=== PATIENT | male | born 1995 | race African-American/Black ===

== ENCOUNTER 2019-08-18 20:16 | Emergency (ER) | payer OTHER ==
[~2019-08-18] VITALS: Ht 165.1 cm; Wt 65.8 kg
[2019-08-18 20:24] VITALS: BP 135/81
--- NOTE | 2019-08-18 21:17 | NUR ---
NO ANSWER IN LOBBY AT THIS TIME.
--- NOTE | 2019-08-18 21:20 | NUR ---
THIS IS A 23Y M THAT COMES IN TONIGHT FOR BILAT KNEE PAIN AFTER STARTING A NEW JOB
--- NOTE | 2019-08-18 21:31 | NUR ---
Patient/Caregiver given discharge instructions and they have confirmed that they understand the instructions. Patient ambulatory with steady gait.
== END 2019-08-18 21:32 | disposition home or self-care (01) ==
LOC: ED 21:27
DX: M17.0 Bilateral primary osteoarthritis of knee (principal)
CPT/HCPCS: 99283

== ENCOUNTER 2019-08-26 09:00 | Emergency (ER) | payer OTHER ==
[~2019-08-26] VITALS: Ht 165.1 cm; Wt 65.5 kg
[2019-08-26 09:03] VITALS: BP 128/63
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
[2019-08-26] MEDS ORDERED: ALBU0.63 NEB (09:16)
[2019-08-26] MEDS ORDERED: ARIP10TA33 PO (09:16)
[2019-08-26] MEDS ORDERED: ACETAMINOPHEN 500 MG TABLET PO ONE (10:00)
== END 2019-08-26 10:13 | disposition home or self-care (01) ==
LOC: ED 09:32
DX: G89.29 Other chronic pain (principal); M25.561 Pain in right knee; M25.562 Pain in left knee
CPT/HCPCS: 99283

== ENCOUNTER 2019-08-31 21:18 | Emergency (ER) | payer OTHER ==
[~2019-08-31] VITALS: Ht 165.1 cm; Wt 63.9 kg
[~2019-08-31 21:18] MED LIST: ALBU0.63 NEB; ARIP10TA33 PO
[2019-08-31 21:23] VITALS: BP 134/74
--- NOTE | 2019-08-31 21:54 | NUR ---
PATIENT TO THE ED WITH C/O BILATERAL KNEE PAIN X MONTHS. TRYING TO GET INTO AN ORTHO WITHIN [employer]. AMBULATING. NO FURTHER CONCERNS.
== END 2019-08-31 21:57 ==
LOC: ED 21:49
DX: G89.29 Other chronic pain (principal); M25.561 Pain in right knee; M25.562 Pain in left knee; F17.210 Nicotine dependence, cigarettes, uncomplicated; Z72.9 Problem related to lifestyle, unspecified
CPT/HCPCS: 99282; 99406

== ENCOUNTER 2019-09-15 09:43 | Emergency (ER) | payer OTHER, MEDICAID ==
[~2019-09-15] VITALS: Ht 165.1 cm; Wt 63.5 kg
--- NOTE | 2019-09-15 10:15 | NUR ---
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
[2019-09-15 11:00] LABS: MICROSCOPIC NOT IND
[2019-09-15 11:14] LABS: AMPHETAMINE SCREEN, URINE Negative (Negative); BARBITURATE SCREEN, URINE Negative (Negative); BENZODIAZEPINE SCREEN, URINE Negative (Negative); CANNABINOID SCREEN, URINE Positive (Negative); COCAINE SCREEN, URINE Negative (Negative); OPIATE SCREEN, URINE Negative (Negative)
[2019-09-15 11:15] LABS: METHADONE SCREEN, URINE Negative (Negative)
[2019-09-15 11:22] LABS: ALBUMIN 4.1 g/dL (3.4-5.0); ANION GAP 3 mmol/L (5-15); CALCIUM 9.2 mg/dL (8.5-10.1); CHLORIDE 109 mmol/L (98-107); CREATININE 1.05 mg/dL (0.7-1.3)
[2019-09-15 11:23] LABS: SALICYLATE LEVEL < 1.7 mg/dL (2.8-20.0)
[2019-09-15 11:24] LABS: BASOPHILS # (AUTO) 0.02 x10^3/uL (0-0.1); BASOPHILS % (AUTO) 0 % (0-1); EOSINOPHILS # (AUTO) 0.24 x10^3/uL (0-0.4); EOSINOPHILS % (AUTO) 4 % (1-7); LYMPHOCYTES # (AUTO) 1.28 x10^3/uL (1-3.4); LYMPHOCYTES % (AUTO) 22 % (22-44); MD NO; MEAN CORPUSCULAR HEMOGLOBIN 31.5 pg (27.5-34.5); MEAN CORPUSCULAR HGB CONC 33.6 g/dL (33.2-36.2); MEAN PLATELET VOLUME 8.6 fL (7.4-10.4); MONOCYTES # (AUTO) 0.41 x10^3/uL (0.2-0.8); MONOCYTES % (AUTO) 7 % (2-9); NEUTROPHILS # (AUTO) 3.96 x10^3/uL (1.8-6.8); NEUTROPHILS % (AUTO) 67 % (42-75); PLATELET COUNT 237 x10^3/uL (130-400); RED BLOOD COUNT 5.35 x10^6/uL (4.38-5.82); RED CELL DISTRIBUTION WIDTH 12.6 % (9.4-14.8)
--- NOTE | 2019-09-15 11:24 | NUR ---
SITTER IN PLACE, SI PRECAUTIONS OBSERVED. PT DENIES NEEDS AT THIS TIME, PT IS CALM RESTING ON GURNEY
--- NOTE | 2019-09-15 12:27 | NUR ---
SYMONE ESCOBEDO IN TO SPEAK WITH PT. JACINTO, PTS GIRLFRIEND IS IN THE LOBBY. PT WOULD LIKE TO VISIT WITH JACINTO ONCE FINISHED WITH FANNY.
[2019-09-15] MEDS ORDERED: ARIPIPRAZOLE 400 MG INJ NC IM ONE (13:00)
[2019-09-15] MEDS ORDERED: ARIPIPRAZOLE 10 MG TABLET PO ONE (13:00)
[2019-09-15] MEDS ORDERED: DULOXETINE 20 MG CAPSULE.DR PO ONE (13:00)
[2019-09-15] MEDS ORDERED: ARIPIPRAZOLE 10 MG TABLET ONE (14:14)
--- NOTE | 2019-09-15 14:30 | NUR ---
BREAK RN: CONFIRMED WITH SYMONE HORTA THAT PT WAS TO RECEIVE PO AND IM OF [facility]. PT MEDICATED ORDERED AND PROVIDED WITH CLOTHING. SIGNIFICANT OTHER AT BEDSIDE. PT AO X 4. CALM AND COOPERATIVE AT THIS TIME. PT AWARE HE IS WAITING FOR DC PAPERWORK.
[2019-09-15 14:47] VITALS: BP 138/76
== END 2019-09-15 14:49 | disposition home or self-care (01) ==
LOC: ED 11:39
DX: F25.1 Schizoaffective disorder, depressive type (principal); F33.9 Major depressive disorder, recurrent, unspecified; J45.909 Unspecified asthma, uncomplicated
CPT/HCPCS: 36415; 80048; 80307; 81003; 82040; 85025; 96372; 99284

== ENCOUNTER 2019-09-29 01:50 | Emergency (ER) | payer MEDICAID, OTHER ==
[~2019-09-29] VITALS: Ht 165.1 cm; Wt 62.5 kg
[2019-09-29 01:54] VITALS: BP 123/75
--- NOTE | 2019-09-29 01:57 | NUR ---
ekg done in triage.
[2019-09-29] MEDS ORDERED: ALBUTEROL SULFATE 2.5 MG/3 ML ONE (02:13)
[2019-09-29] MEDS ORDERED: ALBUTEROL SULFATE 2.5 MG/3 ML NPPB ONE (02:30)
== END 2019-09-29 02:55 | disposition home or self-care (01) ==
LOC: ED 02:22
DX: J45.31 Mild persistent asthma with (acute) exacerbation (principal); R94.31 Abnormal electrocardiogram [ECG] [EKG]; R05 Cough; R06.00 Dyspnea, unspecified
CPT/HCPCS: 93005; 94640; 99283; J7512; J7613

== ENCOUNTER 2019-10-25 19:29 | Emergency (ER) | payer MEDICAID ==
[~2019-10-25] VITALS: Ht 165.1 cm; Wt 63.5 kg
[2019-10-25 19:33] VITALS: BP 133/73
[2019-10-25] MEDS ORDERED: KETOROLAC 30 MG/1 ML ONE (19:51)
[2019-10-25] MEDS ORDERED: DIAZEPAM 5 MG TABLET ONE (19:51)
[2019-10-25] MEDS ORDERED: ACETAMINOPHEN 325 MG TABLET ONE (19:55)
[2019-10-25] MEDS ORDERED: DIAZEPAM 5 MG TABLET PO ONE (20:00)
[2019-10-25] MEDS ORDERED: ACETAMINOPHEN 325 MG TABLET PO ONE (21:00)
[2019-10-25] MEDS ORDERED: KETOROLAC 30 MG/1 ML IM ONE (21:30)
== END 2019-10-25 21:38 | disposition home or self-care (01) ==
LOC: ED 19:50
DX: M54.5 Low back pain (principal); M25.562 Pain in left knee; M25.561 Pain in right knee; J45.909 Unspecified asthma, uncomplicated; F17.200 Nicotine dependence, unspecified, uncomplicated
CPT/HCPCS: 72110; 99284

== ENCOUNTER 2019-11-02 11:12 | Emergency (ER) | payer MEDICAID ==
[~2019-11-02] VITALS: Ht 165.1 cm; Wt 62.3 kg
--- NOTE | 2019-11-02 12:11 | NUR ---
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 CALL TO RADIOLOGY, TO GO TO ROOM AFTER TESTING.
--- NOTE | 2019-11-02 12:23 | NUR ---
C/O BILAT KNEE PAIN X 9 YRS. STATES KNEES JUST GO OUT. ACL & MENISCUS SURGERY TO RT KNEE 07/2018. WAS SCHEDULED FOR PAIN MANAGEMENT - APPT CANCELLED BY OFFICE, RESCHEDULING PENDING.
[2019-11-02] MEDS ORDERED: ABILIFY IM (12:28)
[2019-11-02 12:55] LABS: BASOPHILS # (AUTO) 0.01 x10^3/uL (0-0.1); BASOPHILS % (AUTO) 0 % (0-1); EOSINOPHILS # (AUTO) 0.31 x10^3/uL (0-0.4); EOSINOPHILS % (AUTO) 6 % (1-7); LYMPHOCYTES # (AUTO) 1.31 x10^3/uL (1-3.4); LYMPHOCYTES % (AUTO) 25 % (22-44); MD NO; MEAN CORPUSCULAR HEMOGLOBIN 31.4 pg (27.5-34.5); MEAN CORPUSCULAR HGB CONC 32.9 g/dL (33.2-36.2); MEAN CORPUSCULAR VOLUME 95.4 fL (81-97); MEAN PLATELET VOLUME 7.9 fL (7.4-10.4); MONOCYTES # (AUTO) 0.31 x10^3/uL (0.2-0.8); MONOCYTES % (AUTO) 6 % (2-9); NEUTROPHILS # (AUTO) 3.32 x10^3/uL (1.8-6.8); NEUTROPHILS % (AUTO) 63 % (42-75); PLATELET COUNT 219 x10^3/uL (130-400); RED BLOOD COUNT 5.38 x10^6/uL (4.38-5.82); RED CELL DISTRIBUTION WIDTH 12.9 % (9.4-14.8)
[2019-11-02 12:57] LABS: HCT (SEDRATE) 51.7 % (39.2-51.8)
--- NOTE | 2019-11-02 13:51 | NUR ---
TRAMODOL GIVEN PER EMAR. PT REQUESTING ALBUTEROL INHALER. [facility] FAXED RENEWAL TO [facility], BUT CLINIC HASN'T RESPONDED YET. WILL NOTIFY ERP. KNEE IMMOBILIZER ON RT KNEE. CRUTCHES IN ROOM.
[2019-11-02 13:53] VITALS: BP 102/56
--- NOTE | 2019-11-02 14:45 | NUR ---
NO ADDITIONAL PRESCRIPTIONS WRITTEN. PT ADVISED TO FOLLOW UP W/ [facility].
== END 2019-11-02 14:48 | disposition home or self-care (01) ==
LOC: ED 12:21
DX: G89.29 Other chronic pain (principal); M25.561 Pain in right knee; M25.562 Pain in left knee
CPT/HCPCS: 29505; 36415; 84550; 85025; 85651; 99285

== ENCOUNTER 2019-11-07 12:20 | Emergency (ER) | payer MEDICAID, OTHER ==
[~2019-11-07] VITALS: Ht 165.1 cm; Wt 63.3 kg
[~2019-11-07 12:20] MED LIST changes: +ABILIFY IM
[2019-11-07 12:22] VITALS: BP 139/93
[2019-11-07] MEDS ORDERED: DEXAMETHASONE 4 MG TABLET ONE (12:33)
[2019-11-07] MEDS ORDERED: DEXAMETHASONE 4 MG TABLET PO ONE (13:00)
== END 2019-11-07 13:01 | disposition home or self-care (01) ==
LOC: ED 12:59
DX: J45.901 Unspecified asthma with (acute) exacerbation (principal); Z76.0 Encounter for issue of repeat prescription
CPT/HCPCS: 93005; 99283

== ENCOUNTER 2019-11-13 09:43 | Emergency (ER) | payer MEDICAID ==
[~2019-11-13] VITALS: Ht 165.1 cm; Wt 62.1 kg
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
[2019-11-13 10:18] LABS: BASOPHILS # (AUTO) 0.02 x10^3/uL (0-0.1); BASOPHILS % (AUTO) 0 % (0-1); EOSINOPHILS # (AUTO) 0.28 x10^3/uL (0-0.4); EOSINOPHILS % (AUTO) 4 % (1-7); LYMPHOCYTES # (AUTO) 1.13 x10^3/uL (1-3.4); LYMPHOCYTES % (AUTO) 18 % (22-44); MD NO; MEAN CORPUSCULAR HEMOGLOBIN 31.4 pg (27.5-34.5); MEAN CORPUSCULAR HGB CONC 33.2 g/dL (33.2-36.2); MEAN CORPUSCULAR VOLUME 94.6 fL (81-97); MEAN PLATELET VOLUME 7.7 fL (7.4-10.4); MONOCYTES % (AUTO) 5 % (2-9); NEUTROPHILS # (AUTO) 4.74 x10^3/uL (1.8-6.8); NEUTROPHILS % (AUTO) 73 % (42-75); PLATELET COUNT 181 x10^3/uL (130-400); RED BLOOD COUNT 5.49 x10^6/uL (4.38-5.82); RED CELL DISTRIBUTION WIDTH 13.2 % (9.4-14.8)
[2019-11-13 10:29] LABS: ANION GAP 6 mmol/L (5-15); CALCIUM 9.2 mg/dL (8.5-10.1); CHLORIDE 110 mmol/L (98-107); CREATININE 0.99 mg/dL (0.7-1.3)
--- NOTE | 2019-11-13 10:40 | NUR ---
PT BACK FROM IMAGING.
[2019-11-13 10:59] VITALS: BP 111/67
== END 2019-11-13 11:02 | disposition home or self-care (01) ==
LOC: ED 09:59
DX: F20.9 Schizophrenia, unspecified (principal); F19.10 Other psychoactive substance abuse, uncomplicated; R51 Headache; J45.909 Unspecified asthma, uncomplicated; Z91.14 Patient's other noncompliance with medication regimen
CPT/HCPCS: 36415; 70450; 80048; 82040; 85025; 99284

== ENCOUNTER 2019-11-27 17:55 | Emergency (ER) | payer MEDICAID ==
[~2019-11-27] VITALS: Ht 165.1 cm; Wt 62.4 kg
[2019-11-27 18:52] VITALS: BP 114/70
--- NOTE | 2019-11-27 18:54 | NUR ---
Note undone in EDM - 11/27/19 at 1856 by KAREN Pt presents to ed states throat painx3 days. Seen last week and took whole series of abx for dental pain. Has not followed up w/ dentist. Afraid she has thrush based off of a google search via parents. White pustules noted in back of throat and pt states throat is tender while swallowing secrections. All monitoring applied. Vss. Call light within reach. Awaiting md assessment.
--- NOTE | 2019-11-27 18:56 | NUR ---
Last note charted under wrong pt, disregard note.
--- NOTE | 2019-11-27 18:59 | NUR ---
Pt amb w/ steady gait to room from lobby.
--- NOTE | 2019-11-27 19:18 | NUR ---
at bedside for assessment.
== END 2019-11-27 19:40 | disposition home or self-care (01) ==
LOC: ED 19:33
DX: M25.562 Pain in left knee (principal); M25.561 Pain in right knee; G89.29 Other chronic pain
CPT/HCPCS: 99281